=== PATIENT | male | born 1955 | race Two or more races ===

== ENCOUNTER 2019-03-24 10:03 | Outpatient (CLI) | payer OTHER | END 2019-03-24 15:29 | disposition home or self-care (01) | LOC: NUCLEAR 10:03 | DX: I20.1 Angina pectoris with documented spasm (principal) ==

== ENCOUNTER 2020-02-19 14:15 | Emergency (ER) | payer OTHER ==
[~2020-02-19] VITALS: Ht 172.7 cm; Wt 88.9 kg
[2020-02-19] MEDS ORDERED: AVALIDE 300-121 EACH PO (14:29)
[2020-02-19] MEDS ORDERED: NORVASC5 MG PO (14:30)
[2020-02-19] MEDS ORDERED: LIPITOR40 M1 PO (14:30)
[2020-02-19] MEDS ORDERED: TRICOR48 MG PO (14:30)
[2020-02-19] MEDS ORDERED: JANUMET 50-1,01 EACH PO (14:31)
[2020-02-19] MEDS ORDERED: LANTUS SOL100 UNIT/1 SQ (14:31)
[2020-02-19] MEDS ORDERED: FORTAMET500 MG PO (14:31)
== END 2020-02-19 19:18 | disposition home or self-care (01) ==
LOC: ER 14:15
DX: R07.89 Other chest pain (principal)

== ENCOUNTER 2021-11-12 08:00 | Outpatient (CLI) | payer OTHER ==
[~2021-11-12 08:00] MED LIST: AVALIDE 300-121 EACH PO; FORTAMET500 MG PO; JANUMET 50-1,01 EACH PO; LANTUS SOL100 UNIT/1 SQ; LIPITOR40 M1 PO; NORVASC5 MG PO; TRICOR48 MG PO
== END 2021-11-12 08:30 | disposition home or self-care (01) ==
LOC: PPH VACUNA 08:00
PROVIDERS: ATTEND Emergency Medicine Pediatric Emergency Medicine
DX: Z23 Encounter for immunization (principal)

== ENCOUNTER 2023-05-14 08:24 | Outpatient (CLI) | payer OTHER | END 2023-05-14 08:35 | disposition home or self-care (01) | LOC: RAD 08:24 | PROVIDERS: ATTEND Physical Medicine & Rehabilitation | DX: M54.59 Other low back pain (principal) ==

== ENCOUNTER 2024-02-18 05:11 | Emergency (ER) | payer OTHER ==
[~2024-02-18] VITALS: Ht 175.3 cm; Wt 83.9 kg
[2024-02-18] MEDS ORDERED: PROTONIX40 MG (05:23)
[2024-02-18] MEDS ORDERED: TRIJARDY XR 101 EACH (05:23)
[2024-02-18] MEDS ORDERED: LACTOBACILLUS ACIDOPHILUS 1 CAP CAP PO STA (05:44)
[2024-02-18] MEDS ORDERED: HYOSCYAMINE SULFATE 0.125 MG TAB.SUBL SL STA (05:45)
[2024-02-18] MEDS ORDERED: 0.9 % SODIUM CHLORIDE 1,000 ML IV ONE (05:45)
[2024-02-18 06:27] LABS: HEMATOCRIT 41.3 % (39.0-48.0); HEMOGLOBIN 14.2 g/dL (13-16.00); MEAN CELL VOLUME 84.9 fL (80.0-100.00); MEAN CORPUSCULAR HEMOGLOBIN 29.2 pg (27.00-32.0); MEAN CORPUSCULAR HGB CONC 34.4 g/dl (32.0-36.0); PLATELET COUNT 202 K/uL (150-450); RED BLOOD COUNT 4.86 M/uL (4.00-6.00)
[2024-02-18 06:56] LABS: ALBUMIN 3.4 gm/dL (3.4-5.0); BILIRUBIN TOTAL 0.73 mg/dL (0.3-1.2); CALCIUM 8.9 mg/dL (8.5-10.1); CREATININE SERUM 2.33 mg/dL (0.70-1.30); GLOBULINA 3.8 G/DL (2.4-3.5); TOTAL PROTEIN 7.2 gm/dL (6.4-8.2)
[2024-02-18 07:05] LABS: POTASSIUM 2.99 mEq/L (3.5-5.1)
[2024-02-18] MEDS ORDERED: POTASSIUM CHLORIDE IN 0.9%NACL 1,000 ML IV ONE (07:45)
[2024-02-18 08:03] LABS: URINE APPEARANCE Clear; URINE BILIRRUBIN Negative (NEGATIVE); URINE BLOOD Negative; URINE COLOR Yellow; URINE LEUKOCYTE Negative; URINE NITRATE Negative; URINE PROTEIN Negative (NEGATIVE); URINE UROBILINOGEN 0.2 E.U./dl
[2024-02-18 08:05] LABS: URINE BACTERIA 18.8 uL (0.0-1933); URINE WBC 3.5 uL (0.0-23.2)
[2024-02-18 08:13] LABS: URINE GLUCOSE >=1000 MG/DL (NEGATIVE); URINE RBC 0.7 uL (0.0-20.8)
[2024-02-18] MEDS ORDERED: METRONIDAZOLE/SODIUM CHLORIDE 500 MG/100 ML PIGGYBACK IV ONE (13:45)
[2024-02-18] MEDS ORDERED: CIPROFLOXACIN IN 5 % DEXTROSE 400 MG/200 ML PIGGYBAG IV ONE (13:45)
== END 2024-02-18 19:58 | disposition home or self-care (01) ==
LOC: ER 05:13
PROVIDERS: General Practice
DX: R19.7 Diarrhea, unspecified (principal); I10 Essential (primary) hypertension; E11.9 Type 2 diabetes mellitus without complications; Z79.84 Long term (current) use of oral hypoglycemic drugs
CPT/HCPCS: 36415; 96365; 96366; 99282; J0744; J3480; J3490; J7030

== ENCOUNTER 2024-09-13 07:12 | Outpatient (CLI) | payer OTHER ==
[~2024-09-13 07:12] MED LIST changes: +PROTONIX40 MG; +TRIJARDY XR 101 EACH
== END 2024-09-13 07:13 | disposition home or self-care (01) ==
LOC: NUCLEAR 07:12
PROVIDERS: ATTEND Internal Medicine
DX: I20.9 Angina pectoris, unspecified (principal)
CPT/HCPCS: 78452; 93017; A9500